=== PATIENT | male | born 1990 | race Caucasian/White ===

== ENCOUNTER 2018-09-27 06:39 | Emergency (ER) | payer SELFPAY ==
[2018-09-27] MEDS ORDERED: HYDROCODONE/APAP 7.5/325 MG TAB ONE (07:10)
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
--- NOTE | 2018-09-27 10:10 | RAD REPORT ---
EXAM DESCRIPTION: RAD - Knee Right 3 View - 09/27/2018 7:17 am CLINICAL HISTORY: Right knee pain FINDINGS: No fracture or dislocation is seen. No bone or joint abnormality
== END 2018-09-27 09:09 | disposition home or self-care (01) ==
LOC: ER 06:39
DX: S80.01XA Contusion of right knee, initial encounter (principal); M54.5 Low back pain; W19.XXXA Unspecified fall, initial encounter; Y93.01 Activity, walking, marching and hiking; Y92.89 Other specified places as the place of occurrence of the external cause; Z72.0 Tobacco use
CPT/HCPCS: 99284